=== PATIENT | female | born 1950 | race Caucasian/White ===

== ENCOUNTER → 2017-01-28 | Outpatient (CLI) | payer MEDICARE ==
[~2017-01-28] MED LIST: CEPH-368 PO; CHOL10003 PO; HYDR-3240 PO; LISI5TAB7 PO; MULT1CAP19 PO; OMNIPAQUE 350 MG/ML, 100ML BOTTLE ONE; SIMV20TA3 PO; UBID100C24 PO
== END | disposition home or self-care (01) ==
LOC: RAD 13:29
PROVIDERS: ATTEND Physician Assistant
DX: K57.30 Diverticulosis of large intestine without perforation or abscess without bleeding (principal); K44.9 Diaphragmatic hernia without obstruction or gangrene; N85.2 Hypertrophy of uterus; N28.1 Cyst of kidney, acquired; D25.9 Leiomyoma of uterus, unspecified; E78.5 Hyperlipidemia, unspecified; Z13.220 Encounter for screening for lipoid disorders; Z12.11 Encounter for screening for malignant neoplasm of colon; Z12.4 Encounter for screening for malignant neoplasm of cervix; Z12.39 Encounter for other screening for malignant neoplasm of breast; R73.01 Impaired fasting glucose; I10 Essential (primary) hypertension; Z78.0 Asymptomatic menopausal state; Z87.442 Personal history of urinary calculi; M51.26 Other intervertebral disc displacement, lumbar region; R92.8 Other abnormal and inconclusive findings on diagnostic imaging of breast; R79.9 Abnormal finding of blood chemistry, unspecified; L91.8 Other hypertrophic disorders of the skin; M85.80 Other specified disorders of bone density and structure, unspecified site
CPT/HCPCS: 74177; Q9967